=== PATIENT | male | born 1990 | race Caucasian/White ===

== ENCOUNTER → 2022-12-21 09:32 | Outpatient (BNVA) | payer OTHER, SELFPAY | PROVIDERS: Family Provider Family Medicine; PCP Family Medicine; Visit Provider Clinical Nurse Specialist Adult Health | DX: R05.1 Acute cough (principal) | CPT/HCPCS: 87400; 87880 ==

== ENCOUNTER → 2022-12-25 11:45 | Outpatient (BNVA) | payer OTHER, SELFPAY | PROVIDERS: Family Provider Family Medicine; PCP Family Medicine; Visit Provider Clinical Nurse Specialist Adult Health | DX: R50.9 Fever, unspecified (principal) | CPT/HCPCS: 80053; 81000; 85025; 85651; 86140; 87086 ==

== ENCOUNTER → 2022-12-29 11:46 | Outpatient (BNVA) | payer OTHER, SELFPAY | PROVIDERS: Family Provider Family Medicine; PCP Family Medicine; Visit Provider Family Medicine | DX: R79.89 Other specified abnormal findings of blood chemistry (principal) | CPT/HCPCS: 86308; 86664; 86665; 86705; 86706; 86709; 86803; 87340 ==

== ENCOUNTER → 2023-02-02 12:11 | Outpatient (BNVA) | payer OTHER, SELFPAY | PROVIDERS: Family Provider Family Medicine; PCP Family Medicine; Visit Provider Clinical Nurse Specialist Adult Health | DX: R79.89 Other specified abnormal findings of blood chemistry (principal) | CPT/HCPCS: 80076 ==

== ENCOUNTER → 2024-06-19 15:40 | Outpatient (BNVA) | payer OTHER, SELFPAY | PROVIDERS: Family Provider Family Medicine; PCP Family Medicine; Visit Provider Nurse Practitioner | DX: M25.512 Pain in left shoulder (principal) | CPT/HCPCS: 73030 ==

== ENCOUNTER 2024-06-29 14:24 | Outpatient (CLI) | payer OTHER, SELFPAY ==
--- NOTE | 2024-06-29 16:30 | MR_ITS ---
WS: [id number] MRI LEFT SHOULDER HISTORY: left shoulder pain COMPARISON: Radiograph 06/19/2024 TECHNIQUE: Multiplanar sequences of the shoulder joint are submitted. Marrow edema involving the lateral anterior humeral head. There is a nondisplaced fracture noted thro ugh the greater tuberosity. No glenoid fracture or edema. Normal AC joint. Minimal subacromial impingement. No significant subacromial or subdeltoid fluid. No os acromion. Biceps tendon remains seated in the bicipital groove but there is a slightly lobulated, irregular appearance with central increased T2 signal. Suspect a split tear from the recent injury. T he edema from the trauma also encases the bicipital groove. There is no muscle atrophy or edema. Increased T2 signal in the distal supraspinatus tendon from tend inopathy. There is additional increased signal, more fluidlike, in the distal supraspinatus tendon al bisi the bursal surface. This does not extend to the footprint but it is also closely associated with the fracture of the humeral head. I suspect this is probably an occult tear with interstitial extensi on of the fluid. This is a very minimal tear. No labral tear. The glenoid is intact. MR/MR shoulder LT wo con* [id number] IMPRESSION: 1. Focal marrow edema with acute nondisplaced fracture involving the lateral h umeral head involving the greater trochanter. 2. Biceps tendon remains in the bicipital groove but there is a split tear. Th e bicipital groove is surrounded by marrow edema. 3. Mild distal supraspinatus tendinopathy. 4. There is a very small amount of fluid in the distal supraspinatus tendon ne ar the trauma site. I suspect this is of small insertion site tear with interst itial extension.
== END 2024-06-29 14:25 | disposition home or self-care (01) ==
LOC: RAD 14:24
PROVIDERS: Family Provider Family Medicine; PCP Family Medicine; Visit Provider Nurse Practitioner
DX: S42.255A Nondisplaced fracture of greater tuberosity of left humerus, initial encounter for closed fracture (principal); S46.212A Strain of muscle, fascia and tendon of other parts of biceps, left arm, initial encounter; X58.XXXA Exposure to other specified factors, initial encounter
CPT/HCPCS: 73221